=== PATIENT | female | born 1960 | race African-American/Black ===

== ENCOUNTER 2024-12-24 08:37 | Emergency (ER) | payer MEDICARE, MEDICAID ==
[~2024-12-24] VITALS: Ht 162.6 cm; Wt 75.0 kg
[2024-12-24 08:30] VITALS: RESP 25; O2SAT 85; O2SAT 90
[~2024-12-24 08:37] MED LIST: ACET500C47; AMLO5TAB88; ASPI-1406 PO; ATOR40TA70; BRIM5DRO6 LEFTEYE; BUME2TAB7 PO; CALC667C PO; ERGO1250 PO; FAMO20TA8; FERR325T6 MT; INSU100I28 SUBCUT; INSU100I45; LATA2.5D14 EACHEYE; MAGN400T7 PO; PRED5TAB PO; SULF1TAB44 PO; TACR0.5C4 PO; TIMO15DR12 EACHEYE; VALG450T15 PO
[2024-12-24 08:40] VITALS: PULSE 72; TEMP 36.3; O2SAT 98
[2024-12-24] MEDS ORDERED: NOREPINEPHRINE 8MG/250ML PMX 250 ML IV PRN ×2 (09:00)
[2024-12-24] MEDS: NOREPINEPHRINE 8MG/250ML PMX 250 ML IV ONE (09:15)
[2024-12-24] MEDS: SODIUM BICARBONATE 8.4% 50MEQ/50ML SYR IV ONE ×2 (09:15→10:45)
[2024-12-24] MEDS ORDERED: EPINEPHRINE 5 MG in SODIUM CHLORIDE 0.9% 245 ML IV ONE (09:15)
[2024-12-24] MEDS: DEXTROSE 50% WATER 50ML SYRINGE IV ONE (09:15)
[2024-12-24] MEDS: CALCIUM CHLORIDE 1GM/10ML SYR IV ONE (09:15)
[2024-12-24] MEDS ORDERED: VANCOMYCIN 1G PREMIX 200 ML IV ONE (09:15)
[2024-12-24] MEDS ORDERED: PIPERACILLIN/TAZO 3.375G/50ML 50 ML IV ONE (09:15)
[2024-12-24] MEDS: SODIUM CHLORIDE 0.9% (SEPSIS BOLUS) IV ONE (09:15)
[2024-12-24] MEDS: DOPAMINE 400MG/250ML PREMIX 250 ML IV ONE (09:15)
[2024-12-24 10:14] LABS: CHLORIDE 107 mEq/L (98-107); SODIUM 142 mEq/L (136-145)
[2024-12-24 10:15] LABS: HEMATOCRIT. 23.7 % (36.0-48.0); MEAN CORPUSCULAR HEMOGLOBIN 23.8 pg (28.0-32.0); MEAN CORPUSCULAR HGB CONC 27.1 g/dL (31.0-37.0); MEAN CORPUSCULAR VOLUME 87.6 fL (81.0-99.0); RED BLOOD CELL COUNT 2.71 mill/uL (4.2-5.4)
[2024-12-24 10:18] LABS: CARBON DIOXIDE 14 mEq/L (21-32)
[2024-12-24 10:19] LABS: CALCIUM 12.2 mg/dL (8.7-10.4)
[2024-12-24 10:23] LABS: CREATININE 0.9 mg/dL (0.6-1.0); DIFFERENTIAL COMMENT 1
[2024-12-24 10:24] LABS: GLUCOSE 51 mg/dL (70-105); UREA NITROGEN BLOOD 15 mg/dL (9-23)
[2024-12-24 10:25] LABS: ALANINE AMINOTRANSFERASE 709 IU/L (10-49); ALBUMIN 1.7 g/dL (3.2-4.8); HEMOGLOBIN. 6.4 g/dL (12.0-16.0); INR 2.1; PROTHROMBIN TIME 21.8 sec (9.6-11.0)
[2024-12-24 10:26] LABS: BILIRUBIN DIRECT 0.3 mg/dL (<=3.0); BILIRUBIN TOTAL 0.5 mg/dL (0.1-1.0); PROTEIN TOTAL 3.3 g/dL (6.0-8.3)
[2024-12-24] MEDS ORDERED: DOPAMINE 400MG/250ML PREMIX 250 ML IV PRN ×2 (10:30→12:08)
[2024-12-24] MEDS: ALBUTEROL (0.083%) 2.5MG/3ML NEB HHN ONE (10:34)
[2024-12-24 10:38] LABS: ASPARTATE AMINOTRANSFERASE 2553 IU/L (<34)
[2024-12-24 10:39] LABS: BG BASE EXCESS -18.5 mmol/L (-2.0-3.0); BG CARBOXYHEMOGLOBIN 0.9 % (0.5-1.5); BG DEOXYHEMOGLOBIN 63.1 % (0.0-5.0); BG FRACTION INSPIRED OXYGEN 100; BG HCO3 ACT 12.1 mmol/L (21.0-28.0); BG METHEMOGLOBIN 0.3 % (0.5-1.5); BG OXYGEN SATURATION 36.1 % (94.0-98.0); BG OXYHEMOGLOBIN 35.7 % (94.0-98.0); BG PCO2 57.6 mmHg (32.0-45.0); BG PO2 39.9 mmHg (83.0-108.0); BG SAMPLE SITE LEFT RADIAL; BG VENT MODE VENT - AC
[2024-12-24] MEDS: INSULIN REGULAR (HUMULIN R) 1000UNITS/10ML VIAL IV ONE (10:44)
[2024-12-24] MEDS ORDERED: DEXT 10% WATER 1,000 ML IV SCH (10:45)
[2024-12-24 10:52] VITALS: RESP 27; O2SAT 92
[2024-12-24 10:55] LABS: PLATELET 65 x1000/uL (130-400)
[2024-12-24 10:56] LABS: LACTIC ACID 16.8 mmol/L (0.4-2.0)
[2024-12-24 10:59] LABS: ETHANOL BLOOD < 10 mg/dL (<10); TROPONIN I HIGH SENSITIVITY 2347 ng/L (3.0-34)
[2024-12-24 11:04] LABS: NUCLEATED RED BLOOD CELLS 6 /100 WBC; PLATELET ESTIMATE DECREASED
[2024-12-24 11:05] LABS: ANISOCYTOSIS 2+
[2024-12-24 11:40] VITALS: BP 60/35
[2024-12-24] MEDS: EPINEPHRINE 5 MG in SODIUM CHLORIDE 0.9% 245 ML IV PRN (11:40)
[2024-12-24 12:15] VITALS: RESP 24; O2SAT 88
[2024-12-24] MEDS ORDERED: VASOPRESSIN 20 UNIT in SODIUM CHLORIDE 0.9% 99 ML IV PRN (12:30)
[2024-12-24] MEDS ORDERED: PHENYLEPHRINE 50MG/250ML PMX 250 ML IV PRN ×2 (12:30)
[2024-12-24] MEDS ORDERED: SODIUM BICARBONATE 100 MEQ in SODIUM CHLORIDE 0.45% 900 ML IV SCH (13:00)
== END 2024-12-24 14:45 ==
LOC: ER 08:40 → EDBEDREQ 10:43 → EDBEDREQTM 10:43 → ER 14:45
DX: I46.9 Cardiac arrest, cause unspecified (principal); N28.9 Disorder of kidney and ureter, unspecified; E11.9 Type 2 diabetes mellitus without complications; I10 Essential (primary) hypertension; Z79.899 Other long term (current) drug therapy; Z79.82 Long term (current) use of aspirin; Z79.4 Long term (current) use of insulin
CPT/HCPCS: 71045; 93005; 96374; 96375; 99285; 36600; 80076; 80048; 80320; 82962; 83880; 83605; 83690; 85025; 85610; 86850; 86900; 86901; 87040; 84484; 36415; 84145; 82805; 82375; 31500 ×2; 94664; 36556; 92950; J1815; J3490 ×3; J2543; J7030; J1265; 94070; 98960; J7050; G0480